=== PATIENT | male | born 1995 | race Asian ===

== ENCOUNTER 2016-10-23 20:30 | Emergency (ER) | payer OTHER ==
[~2016-10-23] VITALS: Ht 167.6 cm; Wt 69.4 kg
[2016-10-23 20:34] VITALS: TEMP 36.7; Ht 167.6 cm; Wt 69.4 kg
--- NOTE | 2016-10-23 21:28 | DIAGNOSTIC IMAGING REPORT ---
MAXILLOFACIAL CT CT DOSE: 688.90 mGy.cm HISTORY: Trauma nasal injury TECHNIQUE: Multiaxial CT images of the maxillofacial region were performed and reformatted in the coronal plane without the use of contrast. COMPARISON: None. FINDINGS: Fracture mid and anterior aspect nasal bones. Moderate angulation to the right. All remaining osseous structures are intact. Orbital margins are intact. All major sinuses are considered clear. Orbital margins including orbital floors are intact. Minimal hypertrophic change left nasal turbinates. Small mucous retention cyst base. Maxillary sinus. IMPRESSION: 1. Somewhat angled fracture to the right of the nasal bones. 2. Mild edematous and/or hypertrophic change left nasal turbinates. 3. Study is otherwise negative. Electronically signed by: Esteban Martinez M.D. 10/23/2016 9:26 PM Dictated Date/Time: 10/23/2016 9:24 PM
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
[2016-10-23 22:23] VITALS: BP 118/96; PULSE 96; O2SAT 99
== END 2016-10-23 22:24 | disposition home or self-care (01) ==
LOC: C.EDB 20:31 → C.EDD 22:24
DX: S02.2XXA Fracture of nasal bones, initial encounter for closed fracture (principal); W50.0XXA Accidental hit or strike by another person, initial encounter; F17.200 Nicotine dependence, unspecified, uncomplicated